=== PATIENT | male | born 2005 | race African-American/Black ===

== ENCOUNTER 2023-03-23 14:58 | Emergency (ER) | payer SELFPAY | END 2023-03-23 15:35 | disposition home or self-care (01) | LOC: CSHERS 14:58 | DX: K02.9 Dental caries, unspecified (principal) | CPT/HCPCS: 99282 ==

== ENCOUNTER 2023-04-30 13:10 | Emergency (ER) | payer SELFPAY ==
[2023-04-30] MEDS ORDERED: Lidocaine 1% PF 5 ML VIAL ONE (13:38)
== END 2023-04-30 14:06 | disposition home or self-care (01) ==
LOC: CSHERS 13:10
DX: L03.012 Cellulitis of left finger (principal)
CPT/HCPCS: 10060

== ENCOUNTER 2023-07-20 18:30 | Emergency (ER) | payer SELFPAY | END 2023-07-20 19:52 | disposition home or self-care (01) | LOC: CSHERS 18:30 | DX: K03.81 Cracked tooth (principal) | CPT/HCPCS: 99282 ==

== ENCOUNTER 2024-12-03 14:54 | Emergency (ER) | payer BC ==
[2024-12-03] MEDS ORDERED: Sterile Water 10 ML ONE (15:38)
[2024-12-03] MEDS ORDERED: cefTRIAXone (ROCEPHIN) 500 MG VIAL ONE (15:38)
[2024-12-03] MEDS ORDERED: Azithromycin 250 MG TAB ONE ×2 (15:38→15:40)
[2024-12-03 15:54] LABS: Bilirubin Neg (Negative); Blood, Urine Negative (Negative); Glucose, Urine (Dipstick) Normal (Negative); Ketone, Urine Negative (Negative); Leukocyte 25 (Negative); Nitrite Negative (Negative); Protein, Urine (Dipstick) 15 mg/dl (Neg-Trace)
[2024-12-03 15:58] LABS: Clarity Clear (Clear)
[2024-12-03 16:06] LABS: Bacteria/HPF None Seen HPF (None Seen); CAUTI Indications for Culture Pelvic or flank pain; RBC/HPF None Seen HPF (0-3); Squamous Epithelial None Seen HPF (0-3); Urine Culture Reflex No No; WBC/HPF 0-3 HPF (0-3)
[2024-12-05 14:49] LABS: Chlam.trachomatis by PCR,Urine DETECTED (NotDetected); GC N.gonorrhoeae PCR,UrineVOID Not Detected (NotDetected)
== END 2024-12-03 16:48 | disposition home or self-care (01) ==
LOC: CSHERS 14:54
DX: R30.0 Dysuria (principal)
CPT/HCPCS: 81001; 87491; 87591; 96372; 99283; J0696